=== PATIENT | male | born 1965 | race Caucasian/White ===

== ENCOUNTER 2017-09-09 11:27 | Emergency (ER) | payer BC ==
[~2017-09-09] VITALS: Ht 177.8 cm; Wt 102.1 kg
[~2017-09-09 11:27] MED LIST: FLEXERIL10 MG PO; VICODIN5-300 PO
[2017-09-09 11:41] VITALS: BP 166/120
[2017-09-09] MEDS ORDERED: LIVALO2 M1 PO (12:39)
[2017-09-09] MEDS ORDERED: OMEPRAZOLE40 M1 PO (12:40)
[2017-09-09] MEDS ORDERED: ASPIRIN81 M4 PO (12:40)
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
[2017-09-09] MEDS ORDERED: MOBIC15 M1 PO (13:01)
[2017-09-09] MEDS ORDERED: CYCLOBENZAPRINE5 M2 PO (13:01)
== END 2017-09-09 13:01 ==
LOC: ERH 11:27
DX: S16.1XXA Strain of muscle, fascia and tendon at neck level, initial encounter (principal); S39.012A Strain of muscle, fascia and tendon of lower back, initial encounter; V49.40XA Driver injured in collision with unspecified motor vehicles in traffic accident, initial encounter; Y92.411 Interstate highway as the place of occurrence of the external cause